=== PATIENT | female | born 1955 | race Caucasian/White ===

== ENCOUNTER 2017-07-22 19:18 | Emergency (ER) | payer MEDICARE, OTHER ==
[~2017-07-22 19:18] MED LIST: Iopamidol 370 76% 100 ML VIAL ONE
[2017-07-22] MEDS ORDERED: Sodium Chloride 0.9% 1,000 ML ONE (19:56)
[2017-07-22] MEDS ORDERED: Ondansetron HCl/PF 4 MG/2 ML Vial ONE ×2 (19:56→20:32)
[2017-07-22 20:15] LABS: Bilirubin Negative (Negative); Blood, Urine Moderate (Negative); Glucose, Urine (Dipstick) Negative (Negative); Leukocyte Large (Negative); Nitrite Negative (Negative); Protein, Urine (Dipstick) > or equal to 300 mg/dL (Neg-Trace); Urobilinogen 0.2 mg/dL (0.2-1.0); pH, Urine 8.5 (5.0-9.0)
[2017-07-22 20:17] LABS: Clarity Cloudy (Clear)
[2017-07-22 20:20] LABS: #Basophils 0.1 thou/uL (0.0-0.2); #Eosinphils 0.1 thou/uL (0.0-0.7); #Lymphocytes 1.7 thou/uL (1.20-3.40); #Neutrophils 10.8 thou/uL (1.40-6.50); %Basophils 0.8 % (0.0-1.0); %Eosinophils 0.4 % (0.0-10.0); %Lymphocytes 12.7 % (21.0-51.0); %Monocytes 7.2 % (0.0-10.0); %Neutrophils 78.9 % (42.0-75.0); Hemoglobin 15.9 g/dL (12.0-16.0); Mean Corpuscular HGB CONC 32.4 g/dL (32.0-36.0); Mean Corpuscular Hemoglobin 28.4 pg (27.0-31.0); Mean Corpuscular Volume 87.7 fl (81.0-99.0); Mean Platelet Volume 7.1 fL (7.4-10.4); Platelet Count 307 thou/uL (130-400); RBC Distribution Width 12.9 % (11.5-14.5); Red Blood Cell (RBC) Count 5.61 mill/uL (4.20-5.40); White Blood Cell (WBC) Count 13.7 thou/uL (4.8-10.8)
[2017-07-22 20:28] LABS: Bacteria/HPF 2+ HPF (None Seen); Squamous Epithelial 0-3 HPF (0-3)
[2017-07-22 20:29] LABS: Crystals/HPF 1+ AMORPH PHOS HPF (Negative)
[2017-07-22 20:35] LABS: ALT (SGPT) 14 U/L (8-55); AST (SGOT) 15 U/L (5-34); Albumin 4.4 g/dL (3.4-4.8); Alkaline Phosphatase 94 U/L (40-150); Anion Gap 20 mmol/L (10-20); BUN (Urea Nitrogen) 35 mg/dL (9.8-20.1); Bilirubin, Total 0.6 mg/dL (0.2-1.2); Calc. Creatinine Clearance 0 mL/min (70-130); Calcium 9.8 mg/dL (7.8-10.44); Carbon Dioxide 15 mmol/L (23-31); Chloride 109 mmol/L (98-107); Estimated GFR-MDRD 41; Globulin 3.6 g/dL (2.4-3.5); Glucose 161 mg/dL (80-115); Potassium 4.5 mmol/L (3.5-5.1); Sodium 139 mmol/L (136-145)
[2017-07-22] MEDS ORDERED: Sodium Chloride 0.9% 100 ML ONE (21:28)
[2017-07-22] MEDS ORDERED: cefTRIAXone\\ROCEPHIN 1 GM VIAL ONE (21:28)
[2017-07-23 00:34] LABS: CKMB 0.9 ng/mL (0-6.6); Troponin I 0.025 ng/mL (< 0.028)
[2017-07-23] MEDS ORDERED: Morphine Sulfate 2 MG/ML SYRINGE ONE (04:10)
--- NOTE | 2017-07-23 12:50 | CT ---
PRELIMINARY REPORT/[facility]/EMERGENCY AFTER HOURS PROCEDURE: EXAM: CT Head Without Intravenous Contrast CLINICAL HISTORY: 61 years old, female; Signs and symptoms; Altered mental status/memory loss; Additional info: AMS, v a requested before transfer decision is made TECHNIQUE: Axial computed tomography images of the head/brain without intravenous contrast. All CT scans at [facility] facility use one or more dose reduction techniques, viz.: automated exposure control; ma/kV adjustment per patient size (including targeted exams where dose is matched to indication; i.e. head ); or iterative reconstruction technique. COMPARISON: No relevant prior studies available. FINDINGS: Brain: No hemorrhage. No significant white matter disease. No edema. Ventricles: Unremarkable. No ventriculomegaly. Bones/joints: Unremarkable. No acute fracture. Soft tissues: Unremarkable. Vasculature: Intracranial vascular calcifications. Sinuses: Unremarkable as visualized. No acute sinusitis. Mastoid air cells: Unremarkable as visualized. No mastoid effusion. IMPRESSION: No acute intracranial abnormality. Thank you for allowing us to participate in the care of your patient. Dictated and Authenticated by: Aidee Elias MD 07/23/2017 5:11 AM Central Time ([place] \T\ [place]) FINAL REPORT CT HEAD WITHOUT CONTRAST: Multiple tomograms obtained through the head without contrast. No evidence of acute abnormality. I am in agreement with the preliminary report. POS: [facility]
--- NOTE | 2017-07-23 12:52 | CT ---
PRELIMINARY REPORT/[facility]/EMERGENCY AFTER HOURS PROCEDURE: EXAM: CT Abdomen and Pelvis With Intravenous Contrast CLINICAL HISTORY: 61 years old, female; Pain; Abdominal pain; Generalized; Additional info: Abdominal pain with diffic ulty urinating, va requested before transfer decision is made TECHNIQUE: Axial computed tomography images of the abdomen and pelvis with intravenous contrast. All CT scans a t this facility use one or more dose reduction techniques, viz.: automated exposure control; ma/kV a djustment per patient size (including targeted exams where dose is matched to indication; i.e. head); or iterative reconstruction technique. Coronal and sagittal reformatted images were created a nd reviewed. CONTRAST: 60 mL of ISOVUE 370 administered intravenously. COMPARISON: No relevant prior studies available. FINDINGS: Lower thorax: No acute findings. ABDOMEN: Liver: Unremarkable. No mass. Gallbladder and bile ducts: Postcholecystectomy. No ductal dilation. Pancreas: Unremarkable. No mass. No ductal dilation. Spleen: Unremarkable. No splenomegaly. Adrenals: Unremarkable. No mass. Kidneys and ureters: Unremarkable. No solid mass. No hydronephrosis. Stomach and bowel: Unremarkable. No obstruction. No mucosal thickening. Appendix: No findings to suggest acute appendicitis. PELVIS: Bladder: There is a large bladder diverticulum measuring 3.2 x 13.0 x 11.6 cm and demonstrating muco lorie thickening. Reproductive: Unremarkable as visualized. ABDOMEN and PELVIS: Intraperitoneal space: Unremarkable. No free air. No significant fluid collection. Bones/joints: No acute fracture. No dislocation. Soft tissues: Unremarkable. Vasculature: Atherosclerotic vascular calcification. No abdominal aortic aneurysm. Lymph nodes: Unremarkable. No enlarged lymph nodes. IMPRESSION: Large bladder diverticulum, as described above. Thank you for allowing us to participate in the care of your patient. Dictated and Authenticated by: Aidee Elias MD 07/23/2017 5:15 AM Central Time ([place] \T\ [place]) FINAL REPORT CT ABDOMEN AND PELVIS WITH CONTRAST: Multiple axial tomograms obtained with IV enhancement. Liver, spleen, pancreas, and kidneys unremarkable. Bowel loops unremarkable. The urinary bladder is abnormal. There is a large bladder diverticulum with a significantly distend ed bladder indicating outlet obstruction. Neurologic consultation is recommended. I am in agreement with the preliminary report. POS: [facility]
== END 2017-07-23 09:54 | disposition short-term general hospital (02) ==
LOC: NAV ERS 19:18
DX: N12 Tubulo-interstitial nephritis, not specified as acute or chronic (principal); K21.9 Gastro-esophageal reflux disease without esophagitis; E78.5 Hyperlipidemia, unspecified; I10 Essential (primary) hypertension; F41.9 Anxiety disorder, unspecified; F32.9 Major depressive disorder, single episode, unspecified; F17.210 Nicotine dependence, cigarettes, uncomplicated; Z79.899 Other long term (current) drug therapy
CPT/HCPCS: 36415; 70450; 74177; 80053; 81003; 81015; 82550; 82553; 83605; 84484; 85025; 87040; 87086; 93005; 94760; 96365; 96374; 96375; 96376; J0696; J2270; J2405; J7050